=== PATIENT | female | born 1970 | race Caucasian/White ===

== ENCOUNTER 2017-03-21 15:16 | Emergency (ER) | payer BC ==
[~2017-03-21] VITALS: Ht 170.2 cm; Wt 59.0 kg
[~2017-03-21 15:16] MED LIST: FIRST-PROGESTER25 MG; LEVOTHYROXIN0.025 MG PO; LIPITOR 20 MG T20 M1 PO; NORCO 5-325 TA1 EACH PO; SUMATRIPTAN SUC50 MG PO; TOPAMAX50 MG PO; ZOFRAN ODT4 MG SUBLING; ZOFRAN4 MG PO
[2017-03-21 16:45] LABS: ABSOLUTE LYMPHOCYTES 1.9 thou/uL (0.8-5.3); ABSOLUTE MONOCYTES 0.4 thou/uL (0.0-1.2); ABSOLUTE NEUTROPHILS 6.6 thou/uL (1.6-8.1); BASOPHILS 0.5 %; EOSINOPHILS 0.2 %; HEMATOCRIT 45.8 % (37.0-47.0); HEMOGLOBIN 15.7 gm/dL (12.0-15.0); LYMPHOCYTES 21.4 %; MCH 29.4 pg (26.0-34.0); MCHC 34.2 g/dL (28.0-37.0); MONOCYTES 4.8 %; MPV 9.7 fl. (7.2-11.1); NUCLEATED RBCS 0 /100WBC; PLATELET COUNT* 218 thou/uL (150-400); POLYS 73.1 %; RBC 5.33 mil/uL (4.20-5.00); RDW-CV 13.2 % (10.5-14.5)
[2017-03-21 16:51] LABS: INFLUENZA A ANTIGEN None Detected (None Detect); INFLUENZA B ANTIGEN None Detected (None Detect)
[2017-03-21 16:53] LABS: CREATININE 0.6 mg/dL (0.6-1.3); POTASSIUM 3.5 mmol/L (3.5-5.1)
[2017-03-21 16:57] LABS: ALBUMIN 4.6 g/dL (3.4-5.0); TOTAL BILIRUBIN 0.8 mg/dL (<0.1-1.0); TOTAL PROTEIN 7.9 g/dL (6.4-8.2)
[2017-03-21] MEDS ORDERED: ZOFRAN ODT4 MG PO (17:06)
[2017-03-21] MEDS ORDERED: TRAMADOL 50 MG50 MG PO (17:06)
[2017-03-21] MEDS ORDERED: KEFLEX500 M1 PO (17:06)
[2017-03-21 17:25] VITALS: BP 118/68
== END 2017-03-21 17:26 | disposition home or self-care (01) ==
LOC: M.ERS 15:16
PROVIDERS: Physician Assistant
DX: B34.9 Viral infection, unspecified (principal); H66.93 Otitis media, unspecified, bilateral; E78.00 Pure hypercholesterolemia, unspecified; Z87.442 Personal history of urinary calculi; Z90.49 Acquired absence of other specified parts of digestive tract; Z90.710 Acquired absence of both cervix and uterus; Z88.0 Allergy status to penicillin

== ENCOUNTER → 2017-07-10 | Outpatient (CLI) | payer BC ==
[~2017-07-10] MED LIST changes: +KEFLEX500 M1 PO; +TRAMADOL 50 MG50 MG PO; +ZOFRAN ODT4 MG PO
[2017-07-10 11:16] LABS: CHOLESTEROL 301 mg/dL (<200); HDL CHOLESTEROL 75 mg/dL (>40); LDL CHOLESTEROL 211 mg/dL (<100); SERUM ASSESSMENT Clear; TRIGLYCERIDE 78 mg/dL (<150); TROPONIN-I LEVEL <0.06 ng/mL (<0.06); VLDL 16 mg/dL (<40)
== END ==
LOC: M.LAB 10:31
PROVIDERS: Nurse Practitioner
DX: E78.00 Pure hypercholesterolemia, unspecified (principal); R07.89 Other chest pain

== ENCOUNTER 2020-10-18 19:25 | Emergency (ER) | payer BC ==
[~2020-10-18] VITALS: Ht 170.2 cm; Wt 68.0 kg
[2020-10-18] MEDS ORDERED: [UNRECOGNIZED DRUG - OTHER] (19:44)
[2020-10-18 20:03] LABS: ABSOLUTE BASOPHILS 0.1 thou/uL (0.0-0.2); ABSOLUTE EOSINOPHILS 0.2 thou/uL (0.0-0.7); ABSOLUTE LYMPHOCYTES 4.2 thou/uL (0.8-5.3); ABSOLUTE MONOCYTES 0.5 thou/uL (0.0-1.2); ABSOLUTE NEUTROPHILS 4.8 thou/uL (1.6-8.1); BASOPHILS 0.9 %; EOSINOPHILS 1.9 %; LYMPHOCYTES 43.1 %; MCH 28.5 pg (26.0-34.0); MCHC 34.1 g/dL (28.0-37.0); MCV 83.7 fL (80.0-100.0); MPV 9.8 fl. (7.2-11.1); NUCLEATED RBCS 0 /100WBC; PLATELET COUNT* 237 thou/uL (150-400); POLYS 49.1 %; RDW-CV 13.7 % (10.5-14.5); WBC 9.8 thou/uL (4.0-11.0)
[2020-10-18 20:23] LABS: CALCIUM 8.7 mg/dL (8.5-10.1); CREATININE 0.8 mg/dL (0.6-1.3); POTASSIUM 3.3 mmol/L (3.5-5.1)
[2020-10-18 20:27] LABS: ALBUMIN 4.5 g/dL (3.4-5.0); MAGNESIUM 2.1 mg/dL (1.8-2.4); TOTAL BILIRUBIN 0.6 mg/dL (<0.1-1.0); TOTAL PROTEIN 7.2 g/dL (6.4-8.2)
[2020-10-18 20:53] LABS: URINE BILIRUBIN NEGATIVE (Negative); URINE BLOOD NEGATIVE (Negative); URINE CLARITY CLEAR; URINE COLOR YELLOW; URINE GLUCOSE-RANDOM NEGATIVE (Negative); URINE KETONES NEGATIVE (Negative); URINE LEUKOCYTES-REFLEX NEGATIVE (Negative); URINE NITRITE-REFLEX NEGATIVE (Negative); URINE PROTEIN NEGATIVE (Negative); URINE UROBILINOGEN 0.2 E.U./dl (0.2-1.0)
[2020-10-18 21:41] VITALS: BP 123/77
--- NOTE | 2020-10-19 08:35 | EKG ---
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
== END 2020-10-18 21:41 | disposition home or self-care (01) ==
LOC: M.ERS 19:25
PROVIDERS: Emergency Medicine
DX: R56.9 Unspecified convulsions (principal); Z20.822 Contact with and (suspected) exposure to COVID-19; R55 Syncope and collapse; R20.2 Paresthesia of skin; R05 Cough; E03.9 Hypothyroidism, unspecified; E78.00 Pure hypercholesterolemia, unspecified; Z87.442 Personal history of urinary calculi; Z98.890 Other specified postprocedural states; Z90.49 Acquired absence of other specified parts of digestive tract; Z79.899 Other long term (current) drug therapy; Z88.0 Allergy status to penicillin